=== PATIENT | male | born 2005 | race Caucasian/White ===

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

== ENCOUNTER 2025-04-10 10:23 | Outpatient (OUT) | payer OTHER, SELFPAY ==
--- OUTSIDE RECORDS SUMMARY | 2025-04-10 10:28 | XMS_ITS | Clinical Summary ---
Author Organization [facility] Address [address], [address] [place] [address] Care Team Providers Care Food Chemist Name Role Phone Unavailable Primary Care Provider Unavailabl e Allergies No known active allergies Medications ARIPiprazole (ABILIFY) 30 MG tablet 5 04/22/2015 Active topiramate (TOPAMAX) 25 MG tablet 6 04/24/2015 Active Social History Tobacco Use Types Packs/Day Years Used Date Smoking Tobacco: Never Smokeless Tobacco: Never Comments:mom smokes outside the home. EY MA Alcohol Use Standard Drinks/Week Comments Not Asked 0 (1 standard drink = 0.6 oz pur e alcohol) Sex and Gender Information Value Date Recorded Sex Assigned at Not on file Legal Sex Male 10:02 PM EST Gender Identity Not on file Sexual Orientation Not on file Last Filed Vital Signs Vital Sign Reading Time Taken Comments Blood Pressure 105/66 05/16/2015 9:48 AM EDT Pulse 101 05/16/2015 9:48 AM EDT Temperature 37 C (98.6 F) 05/16/2015 9:48 AM EDT Respiratory Rate 20 05/16/2015 9:48 AM EDT Oxygen Saturation - - Inhaled Oxygen Concentration - - Weight 45.8 kg (101 lb) 05/16/2015 9:48 AM EDT Height 134.6 cm (4' 5 ) 05/16/2015 9:48 AM EDT Body Mass Index 25.28 05/16/2015 9:48 AM EDT Body Mass Index Percentile 97.80% 05/16/2015 9:4 8 AM EDT Growth Chart: CDC (Boys, 2-2 0 Years) Plan of Treatment Not on file Insurance
[2025-04-10 11:01] LABS: Hematocrit 39.5 % (36.0-54.0); Hemoglobin 14.3 g/dL (12.0-18.0); Immature Granulocytes Abs Auto 0.03 10^3/uL (0.00-0.03); Immature Granulocytes Pct Auto 0.3 % (0.0-0.5); Lymphocytes Absolute Auto 3.2 10^3/uL (1.2-3.8); Mean Corpuscular HGB Conc 36.2 g/dL (29.9-35.2); Mean Corpuscular Hemoglobin 31.6 pg (25.9-34.0); Mean Corpuscular Volume 87.4 fL (80.0-99.0); Platelet Count 254 10^3/uL (150-450); Red Blood Count 4.52 10^6/uL (4.20-6.10); White Blood Count 9.3 10^3/uL (4.0-11.0)
[2025-04-10 11:32] LABS: Alanine Aminotransferase 110 U/L (14-63); Albumin Globulin Ratio 0.9; Albumin Level 3.7 g/dL (3.4-5.0); Alkaline Phosphatase 54 U/L (46-116); Anion Gap 17.2; Aspartate Amino Transferase 37 U/L (15-37); Blood Urea Nitrogen 10.0 mg/dL (6.4-19.3); Calcium 8.2 mg/dL (8.5-10.1); Carbon Dioxide 23.8 mmol/L (21.0-32.0); Chloride 105 mmol/L (98-107); Cholesterol 135 mg/dL (104-227); Estimated GFR (African America >60 (>=60 mL/min/1.73m^2); Estimated GFR (Non-African Ame >60 (>=60 mL/min/1.73m^2); Free T3 2.83 pg/mL (2.91-4.70); Globulin 4.2 g/dL; Glucose 107 mg/dL (74-106); HDL Cholesterol 40 mg/dL (23-69); Potassium 4.0 mmol/L (3.5-5.1); Sodium 142 mmol/L (136-145); Thyroid Stimulating Hormone 2.120 uIU/mL (0.516-4.130); Total Protein 7.9 g/dL (6.4-8.2); Triglycerides 159 mg/dL (50-208); VLDL CHOLESTEROL 31.8 mg/dL
== END 2025-04-10 10:24 | disposition home or self-care (01) ==
PROVIDERS: PCP Family Medicine; Visit Provider Family Medicine
DX: R73.09 Other abnormal glucose (principal); R03.0 Elevated blood-pressure reading, without diagnosis of hypertension; R53.83 Other fatigue
CPT/HCPCS: 36415; 80053; 80061; 83036; 83525; 84436; 84443; 84481; 85025

== ENCOUNTER 2025-07-31 12:49 | Outpatient (OUT) | payer OTHER, SELFPAY ==
--- OUTSIDE RECORDS SUMMARY | 2024-04-21 04:00 | XMS_ITS ---
Author Organization The [facility] in [place] Address [address] [place] [address] Care Team Providers Care Can Line Examiner Name Role Phone Agustín White Primary Care Provider [phone] REASON FOR VISIT acne on chest Social History Sex Assigned At : Social History Observation Description Sex Assigned At Male Encounters Encounter Location Date Provider Diagnosis [facility] [address] [place] [address] 04/21/2024 Agustín White Plan Of Treatment No Information Progress Notes * Estefania BEALiDOB:2005 (19 yo M)Acc No.[id number]:04/21/2024 UNLOCKED PROGRESS NOTE Progress Note Patient: Jovana DOSS :?Jose A White (ADELINA), MDDOB:2005???Age: 18 Y???Sex:Male(T)Date:4Phone:[phone]:[address] [place] [address] Subjective: * Chief Complaints: * 1 . Acne on chest. * Medical History: Objective: * Vitals: Assessment: Plan: * Treatment: * * Electronic signature of Agustín White MD, [id number] on 07/31/2025 at 12:53 PM EST Sign off status: PendingVisit Status:?N/S N/C (No Show/No Charge) * Provider: Rekha White MD (TTC) Date: 0 04/21/2024 Generated for Printing/Faxing/eTransmitting on:?07/31/2025 12:53 PM EST
--- OUTSIDE RECORDS SUMMARY | 2024-06-29 09:20 | XMS_ITS ---
Author Organization The [facility] in [place] Address [address] [place] [address] Care Team Providers Care Adult Psychiatrist Name Role Phone Agustín White Primary Care Provider Wilma Baum Unavailable [phone] REASON FOR VISIT great toenails ingrown Social History Sex Assigned At : Social History Observation Description Sex Assigned At Male Encounters Encounter Location Date Provider Diagnosis [facility] ([facility]) [address] [place] [address] [place] [address] 06/29/2024 Wilma Baum Plan Of Treatment No Information Progress Notes * Radha BEALAshliB:2005 (19 yo M)Acc No.[id number]:06/29/2024 UNLOCKED PROGRESS NOTE Follow Up Patient: Radha DOSSomi :?REINA EvansCDOB:2005???Age:18 Y ???Sex:Male(T)Date:06/29/2024hone:[phone]:[address] [place] [address]Pcp:Agustín White Subjective: * Chief Complaints: * 1 . Great toenails ingrown. * Medical History: Objective: * Vitals: Assessment: Plan: * Treatment: * * Electronic signature of Wilma Baum PA-C on 07/31/2025 at 12:53 PM ESTSign off status: PendingVisit Status:?CANC (Cancelled) * Provider: Olimpia Baum PA-C Date: 1 Generated for Printing/Faxing/eTransmitting on:?07/31/2025 12:53 PM EST
--- OUTSIDE RECORDS SUMMARY | 2025-07-23 13:20 | XMS_ITS | Encounter Summary ---
Author Organization [facility] Address [address] [place] [address] Care Team Providers Care Sql Consultant Name Role Phone Jose A White MD Primary Care Provider [phone] Reason for Referral * Consultation (Routine) - AuthorizedSpecialtyDiagnoses / ProceduresReferred By ContactReferred To ContactPlastic Surgery Diagnoses Gender dysphoria in adult Procedures [place] OFFICE/OUTPATIENT [facility] MDM 60 MINUTES Emeka Lim DO [address] [facility] [address] [place] [address] Phone: tel: fax: Ignacio Silva MD [address] [place] [address] Phone: tel: fax: Referral IDStatusReasonStart DateExpiration DateVisits RequestedVisits [id number] Specialty Services Required / * Consultation (Routine) - ClosedSpecialtyDiagnoses / ProceduresReferred By ContactReferred To ContactBehavioral Health Diagnoses Gender dysphoria in adult Procedures [place] OFFICE/OUTPATIENT [facility] MDM 60 MINUTES Emeka Lim DO [address] [facility] [address] [place] [address] Phone: tel: fax: Omayra Fox, [facility] [address] [place] [address] Phone: tel: fax: Referral IDStatReherbertStsid DateExpiration DateVisits RequestedVisits [id number] Specialty Services Required / Reason for Visit * ReasonCommentsHRT Encounter Details DateTypeDepartmentCare Team (Latest Contact Info)Bhtsfkivzzh77/03/2025 1:20 PM ESTOffice Visit [facility] [address] [place] [address] Emeka Lim DO [address] [place] [address] Gender dysphoria in adult (Primary Dx); Elevated glucose; Thyroid disease Social History Tobacco UseTypesPacks/DayYears UsedDateSmoking Tobacco: NeverSmokeless Tobacco: Never Tobacco Cessation:Counseling Given: Not Answered Alcohol UseStandard Drinks/WeekCommentsNever0 (1 standard drink = 0.6 oz pure alcohol)PHQ-2AnswerDate RecordedPatient Health Questionnaire-2 Prgxa79509/22/2024 Humiliation, Afraid, Rape, and Kick questionnaireAnswerDate RecordedWithin the last year, have you been afraid of your partner or ex-partner?No07/23/2025Within the last year, have you been humiliated or emotionally abused in other ways by your partner or ex-partner?No07/23/2025Within the last year, have you been kicked, hit, slapped, or otherwise physically hurt by your partner or ex-partner?No07/23/2025Within the last year, have you been raped or forced to have any kind of sexual activity by your partner or ex-partner?No07/23/2025 Social Connection and Isolation PanelAnswerDate RecordedIn a typical week, how many times do you talk on the phone with family, friends, or neighbors?More than three times a week07/23/2025How often do you get together with friends or relatives?Twice a week07/23/2025How often do you attend jainism or mandaeism services?Never07/23/2025Do you belong to any clubs or organizations such as jainism groups, unions, fraternal or athletic groups, or school groups?No 07/23/2025How often do you attend meetings of the clubs or organizations you belong to?Never07/23/2025Marital StatusNot on file07/23/2025UDIT-CAnswerDate RecordedQ1: How often do you have a drink containing alcohol?Never07/23/2025Q2: How many drinks containing alcohol do you have on a typical day when you are drinking?Patient does not drink07/23/2025Q3: How often do you have six or more drinks on one occasion?Never07/23/2025Overall Financial Resource Strain (CARDIA) AnswerDate RecordedHow hard is it for you to pay for the very basics like food, housing, medical care, and heating?Not very hard07/23/2025[facility] [place] [facility] - Occupational Stress QuestionnaireAnswerDate RecordedDo you feel stress - tense, restless, nervous, or anxious, or unable to sleep at night because yourmind is troubled all the time - these days?Rather much07/23/2025 Exercise Vital SignAnswerDate RecordedOn average, how many days per week do you engage in moderate to strenuous exercise (like a brisk walk)?1 day07/23/2025On average, how many minutes do you engage in exercise at this level?10 min 07/23/2025Hunger Vital SignAnswerDate RecordedWithin the past 12 months, you worried that your food would run out before you got the money to buymore. Sometimes true07/23/2025Within the past 12 months, the food you bought just didn't last and you didn't have money to get more.Never true07/23/2025PRAPARE - TransportationAnswerDate RecordedIn the past 12 months, has lack of transportation kept you from medical appointments or from getting medications?No 07/23/2025In the past 12 months, has lack of transportation kept you from meetings, work, or from getting things needed for daily living?No07/23/2025 Housing Stability Vital SignAnswerDate RecordedIn the last 12 months, was there a time when you were not able to pay the mortgage or rent on time?No07/23/2025 Number of Times Moved in the Last YearNot on file07/23/2025t any time in the past 12 months, were you homeless or living in a retirement (including now)?No [id number] Health LiteracyAnswerDate RecordedHow often do you need to have someone help you when you read instructions, pamphlets, or other written material from your doctor or pharmacy?Never07/23/2025Sex and Gender Information ValueDate RecordedSex Assigned at KqxdaErih05/12/2025 2:23 PM EDTLegal SexFemale 06/01/2025 2:23 PM EDTGender IdentityNot on fileSexual OrientationNot on file documented as of this encounter Last Filed Vital Signs Vital SignReadingTime TakenCommentsBlood Whjleqgm375/7207/23/2025 1:26 PM EST Cxdrj468307/23/2025 1:26 PM TAYMmdybrdbyjn20.8 ??C (98.2 ??F)07/23/2025 1:26 PM ESTRespiratory Shdr550709/22/2024 1:26 PM ESTOxygen Ejzplmukzg24%07/23/2025 1:26 PM ESTInhaled Oxygen Concentration--Ojzqpc524 kg (322 lb)07/23/2025 1:26 PM EST Dhhjfh620.2 cm (5' 7 )07/23/2025 1:26 PM ESTBody Mass Index50.43109/22/2024 1:26 PM ESTdocumented in this encounter Functional Status * AUDIT-C ScoreAnswerDate of PentopcmztKmieyg733/03/2025 1:26 PM Juli Solis MA * QuestionAnswerDate of AssessmentAuthorQ1: How often do you have a drink containing alcohol?Never07/23/2025 1:26 PM Juli Solis MAQ2: How many drinks containing alcohol do you have on a typical day when you are drinking? Patient does not drink07/23/2025 1:26 PM Juli Solis MAQ3: How often do you have six or more drinks on one occasion?Never07/23/2025 1:26 PM Juli Solis MA * Over the past 2 weeks, how often have you been bothered by any of the following problems?QuestionAnswerDate of AssessmentAuthorLittle interest or pleasure in doing thingsNot at all07/23/2025 1:26 PM Juli Solis MA Feeling down, depressed, or hopelessNot at all07/23/2025 1:26 PM Juli Solis MAPatient Health Questionnaire-2 Mkxrf36309/22/2024 1:26 PM Juli Solis MA documented as of this encounter Progress Notes * Emeka Lim, DO - 07/23/2025 1:20 PM EST Images from the original note were not included. FAMILY MEDICINE NOTE Chief Complaint: HRT HPI: Pt is a 19 y.o. female presents to the office today to establish care. Patient's previous PCP: Dr. White -[facility] any [facility] due to insurance. Patient's current other providers: N/A. Most recent labs: around 1 month(s) ago from [facility]. Pt wanted to discuss the following today: HRT. Gender Affirming Care How have you been feeling overall since your last visit: New to our office. Yes No Question Comments [] [x] Side Effects [] [x] Changes in mood [] [x] Changes in appetite [x] [] Missed doses [x] [] Positive changes in body/appearance [] [x] Any questions today Gender Identity: female Social History Substance and Sexual Activity Sexual Activity Never Social History: Tobacco Use: Tobacco Use: Low Risk (07/23/2025) Patient History Smoking Tobacco Use: Never Smokeless Tobacco Use: Never Passive Exposure: Not on file Family History[1] Pt denies any other acute complaints or concerns at this time. SUBJECTIVE: Past Medical History SURGICAL/SOCIAL/FAMILY HX ALLERGIES: Medical History[2] Surgical History[3] Social History[4] Family History[5] Allergies[6] OBJECTIVE: 07/23/2025 1:26 PM 06/14/2025 1:06 PM 06/01/2025 2:44 PM Vitals BMI 50.43 kg/m2 43.53 kg/m2 43.53 kg/m2 BSA (m2) 2.63 m2 2.17 m2 2.17 m2 Systolic 128 Diastolic 72 Heart Rate 84 SpO2 98 % Temp 98.2 ??F Resp 20 16 16 Height (in) 5' 7 5' 2 5' 2 Weight (lb) 322 238 238 Visit Report Report Report Report Physical Exam Constitutional: Appearance: Normal appearance. Cardiovascular: Rate and Rhythm: Normal rate and regular rhythm. Heart sounds: No murmur heard. No friction rub. No gallop. Pulmonary: Breath sounds: Normal breath sounds. No wheezing, rhonchi or rales. Abdominal: General: Abdomen is flat. Bowel sounds are normal. There is no distension. Palpations: Abdomen is soft. There is no mass. Tenderness: There is no abdominal tenderness. There is no guarding. Musculoskeletal: General: Normal range of motion. Skin: General: Skin is warm. Neurological: General: No focal deficit present. Mental Status: She is alert. Mental status is at baseline. Psychiatric: Mood and Affect: Mood and affect normal. Behavior: Behavior normal. ASSESSMENT AND PLAN: Jovana was seen today for hrt. Diagnoses and all orders for this visit: Gender dysphoria in adult (Primary) - estradiol (Vivelle-DOT) 0.1 MG/24HR; Place 1 patch on the skin 2 (two) times a week - spironolactone (Aldactone) 100 MG tablet; Take 1 tablet (100 mg) by mouth in the morning and 1 tablet (100 mg) before bedtime. - Estradiol; Future - Basic metabolic panel; Future - Testosterone, free, total; Future - Estradiol - Basic metabolic panel - Testosterone, free, total Elevated glucose Thyroid disease Gender affirming hormone therapy management: - Estrogen and spironolactone therapy ongoing since January 2024, with no reported side effects and satisfactory progress. - Refills for estrogen patch and spironolactone sent to [facility] in [place]. Continue current dosing schedule. Maintain three-month follow-up schedule. Order labs to be completed prior to next visit; patient may choose preferred lab location. Review lab results at next visit. Gender affirming surgery planning: - Eligible for gender affirming surgery referral now that it has been over one year of hormone therapy. Discussed options including top surgery, orchiectomy, vaginoplasty, and facial feminization surgery. Patient expressed interest in top surgery. - Referral for surgical consult initiated. [facility] [place] discussed as preferred center. Patient informed of insurance coverage process and typical surgical pathway. Mental health support and therapy referral: - Therapy letter required for top surgery. Patient interested in establishing care with a therapistbut unsure where to start. - Referral for therapy initiated, with options including [facility] and local providers. Therapist to provide required letter for surgical clearance. Thyroid disease/elevated glucose levels: - Intermittent levothyroxine use reported, previously taken for suspected thyroid-related hypertension. No ongoing therapy or current concerns. Not currently taking anything for elevated glucose although metformin was listed in the chart as previous med - Follow with PCP for care of these chronic coniditons Patient's Medications New Prescriptions No medications on file Previous Medications BLOOD GLUCOSE MONITORING SUPPL (TRUE METRIX METER) W/DEVICE KIT USE DAILY TO MONITOR BLOOD GLUCOSE LEVEL [employer] LANCETS MICRO THIN 33G MISC USE 1 LANCET TO TEST DAILY ESTRADIOL (ESTRACE) 2 MG TABLET Take 2 mg by mouth Daily LEVOTHYROXINE (SYNTHROID, LEVOXYL) 25 MCG TABLET Take 25 mcg by mouth in the morning. Take before meals. MELATONIN 3 MG CAPSULE Take by mouth TRUE METRIX BLOOD GLUCOSE TEST TEST STRIP 1 each by Other route if needed Modified Medications Modified Medication Previous Medication ESTRADIOL (VIVELLE-DOT) 0.1 MG/24HR estradiol (Vivelle-DOT) 0.1 MG/24HR Place 1 patch on the skin 2 (two) times a week Place 1 patch on the skin 2 (two) times a week SPIRONOLACTONE (ALDACTONE) 100 MG TABLET spironolactone (Aldactone) 100 MG tablet Take 1 tablet (100 mg) by mouth in the morning and 1 tablet (100 mg) before bedtime. Take 100 mg bymouth in the morning and 100 mg before bedtime. Discontinued Medications METFORMIN (GLUCOPHAGE) 500 MG TABLET Take 500 mg by mouth in the morning. Take with meals. EUUFGABD-[id number]-WYKCIUGLDYXOQK (CORTISPORIN) 3.5-91272-3 OTIC SUSPENSION INSTILL 4 DROPS INTO AFFECTED EAR THREE TIMES A DAY Follow Up: Follow up in about 3 months (around 10/23/2025) for gaht f/u. This note was prepared in part with the assistance of dictation and AI technologies; minor errors or omissions may be present. Emeka Lim DO [1] No family history on file. [2] Past Medical History: Diagnosis Date ADHD (attention deficit hyperactivity disorder) Pre-diabetes [3] Past Surgical History: Procedure Laterality Date NO PAST SURGERIES [4] Social History Tobacco Use Smoking status: Never Smokeless tobacco: Never Substance Use Topics Alcohol use: Never Drug use: Never [5] No family history on file. [6] No Known Allergies documented in this encounter Plan of Treatment DateTypeDepartmentCare Team (Latest Contact Info)Aozlkwvidqr39/16/2025 2:00 PM ESTClinical Support [facility] [address] [place] [address] Claudy Santana LPC 10/23/2025 1:20 PM ESTOffice Visit [facility] [address] [place] [address] Emeka Lim DO [address] [place] [address] NameTypePriorityAssociated DiagnosesOrder ScheduleEstradiolLabRoutine Gender dysphoria in adult Expected: 07/23/2025 (Approximate), Expires: 07/23/2026asic metabolic panelLab Routine Gender dysphoria in adult Expected: 07/23/2025 (Approximate), Expires: 07/23/2026Testosterone, free, total LabRoutine Gender dysphoria in adult Expected: 07/23/2025 (Approximate), Expires: 07/23/2026NameTypePriority Associated DiagnosesOrder ScheduleAmbulatory referral to Behavioral Health Outpatient ReferralRoutine Gender dysphoria in adult Expected: 07/23/2025 (Approximate), Expires: 01/20/2026mbulatory referral to Plastic SurgeryOutpatient ReferralRoutine Gender dysphoria in adult Expected: 07/23/2025 (Approximate), Expires: 01/20/2026documented as of this encounter Visit Diagnoses Diagnosis Gender dysphoria in adult- Primary Elevated glucose Other abnormal glucose Thyroid disease Unspecified disorder of thyroid documented in this encounter Care Teams Team MemberRelationshipSpecialtyStart DateEnd Date Jose A White MD [address] [place] [id number] PCP - GeneralFamily Medicine06/01/25documented as of this encounter
--- OUTSIDE RECORDS SUMMARY | 2025-07-31 12:52 | XMS_ITS | CCD ---
Author Organization [facility] CliniSywv Care Team Providers Care Hairspring Inspector Name Role Phone NEHAL ., DR PHAM Admitting Unavailable HOY ., DR PHAM Attending Unavailable HOY ., DR PHAM Primary Care Unavailable HOY ., DR PHAM Consulting Unavailable HOY ., DR PHAM Admitting Unavailable HOY ., DR PHAM Attending Unavailable HOY ., DR PHAM Primary Care Unavailable HOY ., DR PHAM Consulting Unavailable KALEN COLON Consulting Unavailable Problems Problem ClassificationProblemDateDocumented DateEpisodic/ChronicOther connective tissue disease (4 sources)Pain in leg, unspecified; Translations: [PAIN IN LEG UNSPECIFIED] Onset: 86-74-6900OimwlckpKctfe non-traumatic joint disorders (1 source)Pain in unspecified joint; Translations: [PAIN IN UNSPECIFIED JOINT] Onset: 21-71-9826EiuswgdgUyqzh non-traumatic joint disorders (1 source)Pain in right knee; Translations: [PAIN IN RIGHT KNEE]Onset: 09-81-8747Bpfdxqfc Results Test NameValueInterpretationReference RangeFacilityANA by IFAon 12-10-2022 Antinuclear Antibodies, IFANegativeNormMetroHealth Cleveland Heights Medical CenterComment on above: Result Comment: Negative <1:80 Borderline 1:80 Positive >1:80 ICAP nomenclature: AC-0 For more information about Hep-2 cell patterns use ANApatterns.org, the official website for the International Consensus on Antinuclear Antibody (CLAUS) Patterns (ICAP).Performed By: #### ANAIFA #### [facility] [address] [place], [place] [address] Dr. Brandy WhatleyANTISTREPTOLYSIN O AB (ASO)on 68-98-5602Oevraeksoqejltju O Ab 255.7 IU/mLCritically high0.0-200.0The [facility]red HealthcareComment on above: Performed By: #### ANAIFA #### [facility] [address] [place] [address] Dr. Brandy WhatleyRHEUMATOID FACTORon 41-11-8040RU Latex Turbid.12.2 IU/mLNormal <14.0The [facility]red HealthcareComment on above:Performed By: #### RF #### [facility] [address] [place] [address] Dr. Brandy WhatleyCRPon 26-78-5826WSB7.2 mg/dLNormal<=1.0The [facility] Comment on above:Performed By: #### ANAIFA #### [facility] [address] [place] [address] Dr. Brandy WhatleyURIC ACID SERUMon 28-73-3625Gbaet [Mass/Vol]8.9 mg/dLCritically high3.5-7.2The [facility]red HealthcareComment on above:Performed By: #### ANAIFA #### [facility] [address] [place] [address] Dr. Brandy Stout by IFAon 00-57-2677Rikjryamowu Antibodies, IFANegativeNormal The Kindred HealthcareComment on above:Result Comment: Negative <1:80 Borderline 1:80 Positive >1:80 ICAP nomenclature: AC-0 For more information about Hep-2 cell patterns use ANApatterns.org, the official website for the International Consensus on Antinuclear Antibody (CLAUS) Patterns (ICAP).Performed By: #### ANAIFA #### [facility] [address] [place] [address] Dr. Brandy WhatleyANTISTREPTOLYSIN O AB (ASO)on 40-26-6579Jonodtjfasogoqmz O Ab 264.0 IU/mLCritically high0.0-200.0The [facility]red HealthcareComment on above: Performed By: #### ANAIFA #### [facility] [address] [place] [address] Dr. Brandy WhatleyINSULINon 49-08-0445Augapbm26.4 uIU/mLCritically high2.6-24.9The [facility]red HealthcareComment on above:Performed By: #### ANAIFA #### [facility] [address] [place] [address] Dr. Brandy ChaudharyEUMATOID FACTORon 55-85-7308FQ Latex Turbid.10.9 IU/mLNormal <14.0The [facility]red HealthcareComment on above:Performed By: #### ANAIFA #### [facility] [address] [place] [address] Dr. Brandy Vasquez AUTO DIFFon 62-50-9712NPOJ #0.1 103/ulNormal0.0-0.1The [facility]red HealthcareComment on above:Performed By: #### CBC #### [facility] [address] [place] [address] Dr. Brandy WhatleyBasophils/100 WBC (Bld)1.4 %Normal0.2-2.0The [facility] Comment on above:Performed By: #### CBC #### [facility] [address] [place] [address] Dr. Brandy Aponte #0.3 103/ulNormal0.0-0.7The [facility]red HealthcareComment on above: Performed By: #### CBC #### [facility] [address] [place] [address] Dr. Brandy Simpsonosinophils/100 WBC (Bld)3.1 %Normal0.9-7.0The [facility] Comment on above:Performed By: #### CBC #### [facility] [address] [place] [address] Dr. Brandy Simpsonrythrocyte distribution width (RBC) [Ratio]12.0 %Nuweze87.0-15.0 The [facility]red HealthcareComment on above:Performed By: #### CBC #### [facility] [address] [place] [address] Dr. Brandy WhatleyHematocrit (Bld) [Volume fraction]44.7 %Wzjtuz08.0-54.0The [facility]red HealthcareComment on above:Performed By: #### CBC #### [facility] [address] [place] [address] Dr. Brandy WhatleyHemoglobin (Bld) [Mass/Vol]16.8 g/wTHokqhe16.0-18.0The [facility] on above:Performed By: #### CBC #### [facility] [address] [place] [address] Dr. Brandy Villarreal #0.02 10e3/ulNormal0.00-0.03The [facility]red HealthcareComment on above:Performed By: #### CBC #### [facility] [address] [place] [address] Dr. Brandy Villarreal %0.2 %Normal0.0-0.5The [facility]Com[facility] on above: Performed By: #### CBC #### [facility] [address] [place] [address] Dr. Brandy Mcghee #3.4 103/ulNormal1.2-3.8The [facility]red HealthcareComment on above:Performed By: #### CBC #### [facility] [address] [place] [address] Dr. Brandy Claroshocytes/100 WBC (Bld)40.7 %Tczvsz56.5-60.0The [facility] on above:Performed By: #### CBC #### [facility] [address] [place] [address] Dr. Brandy FerraraUAL DIFF REQNONormalThe Kindred HealthcareComment on above: Performed By: #### CBC #### [facility] [address] [place] [address] Dr. Brandy Benson (RBC) [Entitic mass]30.8 qyEzxomq19.9-34.0The [facility]red HealthcareComment on above:Performed By: #### CBC #### [facility] [address] [place] [address] Dr. Brandy Benson (RBC) [Mass/Vol]37.6 g/dLCritically high29.9-35.2The [facility]red HealthcareComment on above:Performed By: #### CBC #### [facility] [address] [place] [address] Dr. Brandy BensonV (RBC) [Entitic vol]82.0 nSYyjnfx05.3-90.1The [facility] on above:Performed By: #### CBC #### [facility] [address] [place] [address] Dr. Brandy Johnson #0.5 103/ulNormal0.3-0.8The Kindred HealthcareComment on above:Performed By: #### CBC #### [facility] [address] [place] [address] Dr. Brandy Pateocytes/100 WBC (Bld)6.0 %Normal1.7-12.0[facility] Comment on above:Performed By: #### CBC #### [facility] [address] [place] [address] Dr. Brandy WellsUT #4.0 103/ulNormal1.4-6.5The Kindred HealthcareComment on above:Performed By: #### CBC #### [facility] [address] [place] [address] Dr. Brandy Wellsutrophils/100 WBC (Bld)48.6 %Kciawe34.0-75.0The Kindred HealthcareComment on above:Performed By: #### CBC #### [facility] [address] [place] [address] Dr. Brandy Kincaidlet mean volume (Bld) [Entitic vol]8.8 fLCritically low 9.5-13.5The [facility]red HealthcareComment on above:Performed By: #### CBC #### [facility] [address] [place] [address] Dr. Brandy WhatleyPLT285 103/ujKsfglo553-254Lgy Kindred HealthcareComment on above: Performed By: #### CBC #### [facility] [address] [place] [address] Dr. Brandy WhatleyRBC5.45 106/ulCritically high3.30-5.40The [facility] Comment on above:Performed By: #### CBC #### [facility] [address] [place] [address] Dr. Brandy WhatleyWBC8.3 103/ulNormal4.0-11.0The [facility] on above: Performed By: #### CBC #### [facility] [address] [place] [address] Dr. Brandy WhatleyCRColton 82-95-3811KTW [Mass/Vol]mg/LNormal<=1.0The [facility] on above:Performed By: #### CMP, TSH, LIPID, CRP, URIC, T7 #### [facility] [address] [place] [address] Dr. Brandy WhatleyFRHIGINIO THYROXINE INDEX T7on 63-33-9573SFS9.71Cwlxlg5.30-4.50The [facility] on above:Performed By: #### CMP, TSH, LIPID, CRP, URIC, T7 #### [facility] [address] [place] [address] Dr. Brandy WhatleyT3U34.0 %Uwiyts28.0-40.0The [facility] on above: Performed By: #### CMP, TSH, LIPID, CRP, URIC, T7 #### [facility] [address] [place] [address] Dr. Brandy WhatleyT4 [Mass/Vol]4.70 ug/dLCritically low5.40-10.60[facility] on above:Performed By: #### CMP, TSH, LIPID, CRP, URIC, T7 #### [facility] [address] [place] [address] Dr. Brandy WhatleyGLYCOHEMOGLOBIN A1Con 88-49-5575RNT RECOMMENDATIONSEE BELOWNormal The [facility]Com[facility] on above:Result Comment: ADA RECOMMENDED LIMIT 4.0 - 6.0 ADA THERAPEUTIC TARGET < 7.0 ACTION SUGGESTED > 7.0Performed By: #### A1C #### [facility] [address] [place] [address] Dr. Brandy WhatleyGlucose [Mass/Vol]88 mg/dLNormalThe [facility]elito HospitalComment on above:Performed By: #### A1C #### [facility] [address] [address] [address] Brandy WhatleyHbA1c (Bld) [Mass fraction]4.7 %Normal4.5-6.2The [facility]red HealthcareComment on above:Performed By: #### A1C #### [facility] [address] [place] [address] Dr. Brandy Gomes 24-78-0020Gwio [Mass/Vol]122.0 ug/vFKuglhl28.0-175.0The [facility]red HealthcareComment on above:Performed By: #### ANAIFA #### [facility] [address] [place] [address] Dr. Brnady FlemingID PROFILEon 27-05-2210QRUZ-HDL RATIO [facility] on above:Result Comment: 3.3 - 4.4 LOW RISK 4.4 - 7.1 AVERAGE RISK 7.1 - 11.0 MODERATE RISK >11.0 HIGH RISKPerformed By: #### CMP, TSH, LIPID, CRP, URIC, T7 #### [facility] [address] [place] [address] Dr. Brandy WhatleyCholesterol [Mass/Vol]158 mg/vJDqxlbp986-012Voa [facility] Comment on above:Performed By: #### CMP, TSH, LIPID, CRP, URIC, T7 #### [facility] [address] [place] [address] Dr. Brandy WhatleyCholesterol in HDL [Mass/Vol]37 mg/tMRxilmr71-56Ehy [facility] HealthcareComment on above:Performed By: #### CMP, TSH, LIPID, CRP, URIC, T7 #### [facility] [address] [place] [address] Dr. Brandy Schusteresterol in LDL [Mass/Vol]72.4 mg/bQFyczji99.0-117.0The [facility] on above:Performed By: #### CMP, TSH, LIPID, CRP, URIC, T7 #### [facility] [address] [place] [address] Dr. Brandy WhatleyCholesterol.total/Cholesterol in HDL [Mass ratio]4.3 {ratio} NormalThe [facility] on above:Performed By: #### CMP, TSH, LIPID, CRP, URIC, T7 #### [facility] [address] [address] [address] Brandy Jung NORMAL> or = 60 mg/dl - LOW CARDIOVASCULAR RISK <40 mg/dl - HIGH CARDIOVASCULAR RISKParkview Health Montpelier HospitalComment on above:Performed By: #### CMP, TSH, LIPID, CRP, URIC, T7 #### [facility] [address] [place] [address] Dr. Brandy WhatleyLDL CALC NORMALSEE BELOWParkview Health Montpelier HospitalComment on above:Result Comment: <100 mg/dl OPTIMAL 100 - 129 mg/dl NEAR OR ABOVE OPTIMAL 130 - 159 mg/dl BORDERLINE HIGH 160 - 189 mg/dl HIGH >190 mg/dl VERY HIGH Performed By: #### CMP, TSH, LIPID, CRP, URIC, T7 #### [facility] [address] [place] [address] Dr. Brandy WhatleyTriglyceride [Mass/Vol]243 mg/dLCritically zqof50-041Gzj [facility] on above:Performed By: #### CMP, TSH, LIPID, CRP, URIC, T7 #### [facility] [address] [place] [address] Dr. Brandy WhatleyVLDL CALC48.6 mg/dLNoKing's Daughters Medical Center OhioCombeaumont hospital on above: Performed By: #### CMP, TSH, LIPID, CRP, URIC, T7 #### [facility] [address] [place] [address] Dr. Brandy WhatleyPROLizzie 14(COMP METB)on 94-94-3668Afvezjm [Mass/Vol]4.6 g/dLNormal 3.4-5.0The [facility] HealthcareCombeaumont hospital on above:Performed By: #### CMP, TSH, LIPID, CRP, URIC, T7 #### [facility] [address] [place] [address] Dr. Brandy WhatleyAlbumin/Globulin [Mass ratio]1.1 {ratio}NormalThe [facility]red HealthcareComment on above:Performed By: #### CMP, TSH, LIPID, CRP, URIC, T7 #### [facility] [address] [place] [address] Dr. Brandy Cantu [Catalytic activity/Vol]85 U/AOymmpu56-014Ash [facility] HealthcareComment on above:Performed By: #### CMP, TSH, LIPID, CRP, URIC, T7 #### [facility] [address] [place] [address] Dr. Brandy Armando [Catalytic activity/Vol]145 U/LCritically bzky65-45Epg [facility] HealthcareComment on above:Performed By: #### CMP, TSH, LIPID, CRP, URIC, T7 #### [facility] [address] [place] [address] Dr. Brandy WhatleyAnion gap [Moles/Vol]15.1 mmol/LNormalThe [facility] Comment on above:Performed By: #### CMP, TSH, LIPID, CRP, URIC, T7 #### [facility] [address] [place] [address] Dr. Brandy Munoz [Catalytic activity/Vol]44 U/LCritically mfmb91-59Zsy [facility] on above:Performed By: #### CMP, TSH, LIPID, CRP, URIC, T7 #### [facility] [address] [place] [address] Dr. Brandy WhatleyBilirubin [Mass/Vol]0.8 mg/dLNormal0.2-1.0The [facility] Comment on above:Performed By: #### CMP, TSH, LIPID, CRP, URIC, T7 #### [facility] [address] [place] [address] Dr. Brandy WhatleyCalcium [Mass/Vol]9.5 mg/dLNormal8.5-10.1The [facility] Comment on above:Performed By: #### CMP, TSH, LIPID, CRP, URIC, T7 #### [facility] [address] [place] [address] Dr. Brandy WhatleyChloride [Moles/Vol]102 mmol/MQqzmhp96-263Muf [facility] Comment on above:Performed By: #### CMP, TSH, LIPID, CRP, URIC, T7 #### [facility] [address] [address] [address] Brandy WhatleyCO2 [Moles/Vol]27.7 mmol/WCwvztf36.0-32.0The [facility] Comment on above:Performed By: #### CMP, TSH, LIPID, CRP, URIC, T7 #### [facility] [address] [place] [address] Dr. Brandy WhatleyCreatinine [Mass/Vol]0.78 mg/dLNormal0.70-1.30The [facility]red HealthcareComment on above:Performed By: #### CMP, TSH, LIPID, CRP, URIC, T7 #### [facility] [address] [place] [address] Dr. Brandy WhatleyGlobulin (S) [Mass/Vol]4.3 g/dLNormalThe [facility]red HealthcareComment on above:Performed By: #### CMP, TSH, LIPID, CRP, URIC, T7 #### [facility] [address] [place] [address] Dr. Brandy WhatleyGlucose [Mass/Vol]95 mg/jYNcvfik65-163RmxSt. [facility] Comment on above:Performed By: #### CMP, TSH, LIPID, CRP, URIC, T7 #### [facility] [address] [place] [address] Dr. Brandy WhatleyPotassium [Moles/Vol]3.8 mmol/LNormal3.5-5.1The [facility] Comment on above:Performed By: #### CMP, TSH, LIPID, CRP, URIC, T7 #### [facility] [address] [place] [address] Dr. Brandy WhatleyProtein [Mass/Vol]8.9 g/dLCritically high6.4-8.2The [facility]red HealthcareComment on above:Performed By: #### CMP, TSH, LIPID, CRP, URIC, T7 #### [facility] [address] [place] [address] Dr. Brandy WhatleySodium [Moles/Vol]141 mmol/OBfnzzv177-087Phx [facility] Comment on above:Performed By: #### CMP, TSH, LIPID, CRP, URIC, T7 #### [facility] [address] [address] [address] Brandy WhatleyUrea nitrogen [Mass/Vol]9.0 mg/dLNormal6.4-19.3The [facility] HealthcareComment on above:Performed By: #### CMP, TSH, LIPID, CRP, URIC, T7 #### [facility] [address] [address] [address] Brandy WhatleyUrea nitrogen/Creatinine [Mass ratio]11.5 mg/mgNoKing's Daughters Medical Center OhioComment on above:Performed By: #### CMP, TSH, LIPID, CRP, URIC, T7 #### [facility] [address] [address] [address] Brandy CornejoHoyusuf 63-89-7785JFC1.415 uIU/mLNormal0.516-4.130The [facility]red HealthcareComment on above:Performed By: #### CMP, TSH, LIPID, CRP, URIC, T7 #### [facility] [address] [address] [address] Brandy WhatleyURIC ACID SERUMon 15-15-4356Ytjbg [Mass/Vol]9.7 mg/dLCritically high3.5-7.2The [facility]red HealthcareComment on above:Performed By: #### CMP, TSH, LIPID, CRP, URIC, T7 #### [facility] [address] [address] [address] Brandy WhatleyXR KNEE RT 4V or >on 45-10-0306JA KNEE RT 4V or >TECHNIQUE: 4 views of the right knee. FINDINGS: Mineralization: Within normal limits. Bones: No acute fractures or dislocations. Joints: Normal joint spacing. Soft Tissues: Unremarkable. IMPRESSION: No acute osseous abnormality. Electronically authenticated by: KALEN COLON Date: 2022-10-19 08:18[facility] Encounters Encounter DateEncounter TypeCare ProviderFacilityStart: 12-07-2022 End: 09-14-1353lgfmmqhnguBA VERO CALVERT .Facility:H1Qdkpr: 37-10-5139Mqlkyktbt for routine child health examination without abnormal findingsDR VERO SERRANOY . [facility]: 10-19-2022 End: 48-31-4324lgsppjzhtsKO VERO HOY .Facility:N5Pihni: 10-19-2022 End: 75-37-4800Wlabunowd for routine child health examination without abnormal findingsDR VERO HOY .Facility: Payers DatePayer CategoryPayerPolicy [id number] Summary Purpose Family History No Family History Records Found Advance Directives No Advanced Directives Records Found Additional Source Comments (unrecognized sect ion and content) No Status Records Found INFORMATION SOURCE (unrecogn ized section and content) DATE CREATED AUTHOR 12/15/2022 [facility] FOR RECORDS PERTAINING TO PATIENTS WHO ARE OR HAVE BEEN ENROLLED IN A CHEMICAL DEPENDENCY/SUBSTANCEABUSE PROGRAM, SOME INFORMATION MAY BE OMITTED. This clinical summary was aggregated from multiple sources. Caution should be exercised in using it in the provision of clinical care. This summary normalizes information from multiple sources, and as a consequence, information in this document may materially change the coding, format and clinical context of patient data. In addition, data may be omitted in some cases. CLINICAL DECISIONS SHOULD BE BASED ON THE PRIMARY CLINICAL RECORDS. [employer] provides no warranty or guarantee of the accuracy or completeness of information in this document.
--- OUTSIDE RECORDS SUMMARY | 2025-07-31 12:53 | XMS_ITS | Clinical Summary ---
Author Organization [facility] Address [address] [id number] Care Team Providers Care Air Plant Engineer Name Role Phone Unavailable Primary Care Provider Unavailabl e Source Comments The following information is NOT included in Care Everywhere downloads:Psychiatric notes, ECG results, Cardiac Rehab notes, Pulmonary Function notes, data from SmartForms (includes but not limited toPregnancy data,audiograms, eye exams, pre-surgical evaluation notes, well-child exam data).[facility] Encounters DateTypeDepartmentCare GavsTykhlanpuft72/10/2025Transcribe Orders [facility] Physician Referral Service [address] [phone] Emeka Lim DO from Last 3 Months Social History Tobacco UseTypesPacks/DayYears UsedDateSmoking Tobacco: Never Assessed CommentsUnknownSex and Gender InformationValueDate RecordedSex Assigned at Not on fileLegal TyqNuarza25/10/2025 3:41 PM ESTGender IdentityNot on fileSexual OrientationNot on file Plan of Treatment Health MaintenanceDue DateLast DoneCommentsHIV Test2020HPV Vaccine (1 - 3- dose series)2020Meningococcal B (Bexsero,OMV) Vaccine (Optional,16-23 years)2021Hepatitis C Geskipcp96/22/2023STI Screening (Age 18-24) 2023Tdap Ulqtnay1409/10/2023Hepatitis A (HAV) Vaccine (optional start 19+ years)2024Hepatitis B (HBV) Vaccine (1 of 3 - 19+ 3-dose series)2024 Tetanus (Td or Tdap) Inofzhr2109/10/2024OVID-19 Vaccine ( - 2024-26 season) 2025Influenza Vaccine (#1)2025Eliceo (RZV) Vaccine (1 of 2) 2055Pneumococcal Vaccine(s)Aged OutNo longer eligible based on patient's age to complete this topic
--- OUTSIDE RECORDS SUMMARY | 2025-07-31 12:53 | XMS_ITS | Encounter Summary ---
Author Organization [facility] Address [address] [phone] Care Team Providers Care Jewel Inspector Name Role Phone Unavailable Primary Care Provider Unavailabl e Reason for Referral * Service Level Authorization (Routine) - AuthorizedSpecialtyDiagnoses / ProceduresReferred By ContactReferred To ContactPlastic Surgery Diagnoses Gender dysphoria in adult Emeka Lim DO [address] [address] Phone: tel: fax: Ignacio Silva MD [address] [place] [phone] Phone: tel: fax: Referral IDStatusReasonStart DateExpiration DateVisits RequestedVisits [id number]/10/202511/10/202633 Scheduling Instructions Please call the Plastic Surgery Office at to schedule an appointment if one was not made for you today. Encounter Details DateTypeDepartmentCare Team (Latest Contact Info)Sgyrrbwiwtp14/10/2025Transcribe Orders [facility] Physician Referral Service [address] [place] [address] Emeka Lim DO [address] [place], [place] [id number] Social History Tobacco UseTypesPacks/DayYears UsedDateSmoking Tobacco: Never Assessed CommentsUnknownSex and Gender InformationValueDate RecordedSex Assigned at Not on fileLegal OlzTercwo55/10/2025 3:41 PM ESTGender IdentityNot on fileSexual OrientationNot on filedocumented as of this encounter Plan of Treatment NameTypePriorityAssociated DiagnosesOrder SchedulePLASTIC SURGERY SERVICE REQUESTReferralRoutine Gender dysphoria in adult Ordered: 07/30/2025documented as of this encounter Visit Diagnoses Diagnosis Gender dysphoria in adult- Primary documented in this encounter
--- OUTSIDE RECORDS SUMMARY | 2025-07-31 12:53 | XMS_ITS | Clinical Summary ---
Author Organization [facility] Address [address] [place] [address] Care Team Providers Care Management Advisor Name Role Phone Jose A White MD Primary Care Provider [phone] Allergies No known active allergies Medications MedicationSigDispense QuantityRefillsLast FilledStart DateEnd DateStatus Blood Glucose Monitoring Suppl (True Metrix Meter) w/Device kit USE DAILY TO MONITOR BLOOD GLUCOSE LEVEL04/20/2025tive estradiol (Estrace) 2 MG tablet Take 2 mg by mouth Daily5Active True Metrix Blood Glucose Test test strip 1 each by Other route if onfhqt8004/20/2025tive [facility] Lancets Micro Thin 33G [facility] USE 1 LANCET TO TEST DAILY04/20/2025tive levothyroxine (Synthroid, Levoxyl) 25 MCG tablet Take 25 mcg by mouth in the morning. Take before meals.04/10/2025tive Melatonin 3 MG capsule Take by mouthActive estradiol (Vivelle-DOT) 0.1 MG/24HR Indications:Gender dysphoria in adultPlace 1 patch on the skin 2 (two) times a week 30 patch /ctive spironolactone (Aldactone) 100 MG tablet Indications:Gender dysphoria in adultTake 1 tablet (100 mg) by mouth in the morning and 1 tablet (100 mg) before bedtime. 60 tablet ctive estradiol (Vivelle-DOT) 0.1 MG/24HR Place 1 patch on the skin 2 (two) times a weekDiscontinued (Reorder) metFORMIN (Glucophage) 500 MG tablet Take 500 mg by mouth in the morning. Take with meals. Discontinued(Therapy completed) diksrliu-pksckkwth-bvahdteckyqmhd (Cortisporin) 3.5-61354-8 otic suspension INSTILL 4 DROPS INTO AFFECTED EAR THREE TIMES A DAY Discontinued(Therapy completed) spironolactone (Aldactone) 100 MG tablet Take 100 mg by mouth in the morning and 100 mg before bedtime.07/03/2025 07/23/2025Discontinued(Reorder) Active Problems No known active problems Encounters DateTypeDepartmentCare XtlgGxkbfhguods06/03/2025 1:20 PM ESTOffice Visit [facility] [address] , [facility] [address] [place] [address] Emeka Lim DO Gender dysphoria in adult (Primary Dx); Elevated glucose; Thyroid lnadhfk3607/23/2025amboo flowsheet [facility]ly [facility], [facility] [address] , [facility] [address] [place] [address] Emeka Lim DO 07/23/20259836Lfosve51/25/2025 1:00 PM EDTOffice Visit [facility] [address] [facility] [address] [place] [phone] Devyn Giordano DPM Abscess, toe, left (Primary Dx); Onychocryptosis; Toe pain, left06/14/2025amboo flowsheet [facility] [address] [facility] [address] [place] [address] Devyn Giordano DPM 06/14/20258973Lcofzj27/12/2025 2:30 PM EDTOffice Visit [facility] [address] [place] [phone] Devyn Giordano DPM Onychocryptosis (Primary Dx); Toe pain, left; Abscess, toe, left06/01/2025amboo flowsheet [facility] [address] [place] [address] Devyn Giordano DPM from Last 3 Months Social History Tobacco UseTypesPacks/DayYears UsedDateSmoking Tobacco: NeverSmokeless Tobacco: Never Tobacco Cessation:Counseling Given: Not Answered Alcohol UseStandard Drinks/WeekCommentsNever0 (1 standard drink = 0.6 oz pure alcohol)PHQ-2AnswerDate RecordedPatient Health Questionnaire-2 Ryxww10109/22/2024 Humiliation, Afraid, Rape, and Kick questionnaireAnswerDate RecordedWithin [...] relatives?Twice a week07/23/2025How often do you attend uatsdin or muslim services?Never07/23/2025Do you belong to any clubs or organizations such as uatsdin groups, unions, fraternal or athletic groups, or [...] food, housing, medical care, and heating?Not very hard07/23/2025[facility] - Occupational Stress QuestionnaireAnswerDate [...] were you homeless or living in a chcf (including now)?No 07/23/2025B1300 Health LiteracyAnswerDate RecordedHow often do you need to have someone help you when you read instructions, pamphlets, or other written material from your doctor or pharmacy?Never07/23/2025Sex and Gender Information ValueDate RecordedSex Assigned at LhuolUeym60/12/2025 2:23 PM EDTLegal SexFemale 06/01/2025 2:23 PM EDTGender IdentityNot on fileSexual OrientationNot on file Last Filed Vital Signs Vital SignReadingTime TakenCommentsBlood Wgtzkirz354/7211 1:26 PM EST Ipqvz844407/23/2025 1:26 PM EGOKlvueqdjsry57.8 ??C (98.2 ??F)07/23/2025 1:26 PM ESTRespiratory Cthh990409/22/2024 1:26 PM ESTOxygen Ubchmymfmv38%07/23/2025 1:26 PM ESTInhaled Oxygen Concentration--Wpioto558 kg (322 lb)07/23/2025 1:26 PM EST Tnvkmm295.2 cm (5' 7 )07/23/2025 1:26 PM ESTBody Mass Index50.43109/22/2024 1:26 PM EST Plan of Treatment DateTypeDepartmentCare Team (Latest Contact Info)Tngszwrcrwz85/16/2025 2:00 PM ESTClinical Support [facility] [address] [place] [address] Claudy Santana LPC 10/23/2025 1:20 PM ESTOffice Visit [facility] [address], [place] [address] [place] [address] Emeka Lim DO [address] [place] [address] [place] [address] Health MaintenanceDue DateLast DoneCommentsCOVID-19 Vaccine ( season) /07/2021, 02/07/2021Influenza Vaccine (#1)/, 12/20/2018, 08/19/2007, Additional history existsPneumococcal Vaccine: Pediatrics (0 to 5 Years) and At-Risk Patients (6 to 64 Years)Aged OutNo longer eligible based on patient's age to complete this topic Insurance Care Teams Team MemberRelationshipSpecialtyStart Date Jose A White MD [address] [place] [phone] PCP - GeneralFamily Medicine06/01/25
--- OUTSIDE RECORDS SUMMARY | 2025-07-31 12:54 | XMS_ITS | Encounter Summary ---
Author Organization [facility] Address [address] [place] [address] Care Team Providers Care Tax Examiner Name Role Phone Jose A White MD Primary Care Provider [phone] Encounter Details DateTypeDepartmentCare Team (Latest Contact Info)Wofceruyfax99/03/2025Travel Social History Tobacco UseTypesPacks/DayYears UsedDateSmoking Tobacco: NeverSmokeless Tobacco: NeverAlcohol UseStandard Drinks/WeekCommentsNever0 (1 standard drink = 0.6 oz pure alcohol)PHQ-2AnswerDate RecordedPatient Health Questionnaire-2 Score0 07/23/2025Humiliation, Afraid, Rape, and Kick questionnaireAnswerDate Recorded Within the last year, have you been afraid of your partner or ex-partner?No 07/23/2025Within the last year, have you been humiliated [...] relatives?Twice a week07/23/2025How often do you attend sikh or christianity services?Never07/23/2025Do you belong to any clubs or organizations such as sikh groups, unions, fraternal or athletic groups, or [...] food, housing, medical care, and heating?Not very hard07/23/2025[facility] [place] of Occupational Health - Occupational Stress QuestionnaireAnswerDate [...] were you homeless or living in a fci (including now)?No 5B1300 Health LiteracyAnswerDate RecordedHow often do you need to have someone help you when you read instructions, pamphlets, or other written material from your doctor or pharmacy?Never07/23/2025Sex and Gender Information ValueDate RecordedSex Assigned at SxjitTusb58/12/2025 2:23 PM EDTLegal SexFemale 06/01/2025 2:23 PM EDTGender IdentityNot on fileSexual OrientationNot on file documented as of this encounter Functional Status * AUDIT-C ScoreAnswerDate of KxcntvaxgxTcssnt373/03/2025 1:26 PM Juli Solis MA * QuestionAnswerDate [...] 1:26 PM Juli Solis MAPatient Health Questionnaire-2 Awzic66509/22/2024 1:26 PM Juli Solis MA documented as of this encounter Plan of Treatment DateTypeDepartmentCare Team (Latest Contact Info)Mfliuynsquh57/16/2025 2:00 PM ESTClinical Support [facility] [address] [place] [address] Max Claudy, REGIONAL ACCOUNT EXECUTIVE 10/23/2025 1:20 PM ESTOffice Visit [facility] [address], [place] [address] [place] [phone] Emeka Lim, [address] [place] [address] [place] [address] documented as of this encounter Visit Diagnoses Not on filedocumented in this encounter Care Teams Team MemberRelationshipSpecialtyStart DateEnd Date Jose A White MD [address] [facility] [address] PCP - GeneralFamily Medicine06/01/25documented as of this encounter
--- OUTSIDE RECORDS SUMMARY | 2025-07-31 12:54 | XMS_ITS | Patient Health Record ---
Author Organization [facility] [place] Address [address] [place] [address] Care Team Providers Care Nuclear Plant Technical Advisor Name Role Phone Agustín White Primary Care Provider BarryWilma Unavailable [phone] Allergies No Known Allergies Results Component Value Reference Range Notes FREE T3 Reviewed date:09/04/2024 02:25:18 PM Interpretation: Performing Lab: Notes/Report: [facility] , Free T3 3.11 2.91-4.70 pg/mL Performing Lab:see note - [facility] LBGLYCOHEMOGLOBIN A1C Reviewed date:09/04/2024 02:25:18 PM Interpretation: Performing Lab: Notes/Report: [facility] ,Glycohemoglobin A1C4.94.5-6.2 % > 7.0 ACTION SUGGESTED ADA RECOMMENDED LIMIT 4.0 - 6.0 ADA THERAPEUTIC TARGET < 7.0 Estimated Average Mndydvd32Cqliljjslf Lab:see noteML - [facility] LB INSULIN Reviewed date:09/06/2024 04:12:39 PM Interpretation: Performing Lab: Notes/Report: [facility] ,Xhxlour76.52.6-24.9 uIU/mL Dental Service Chief: Merritt Clayton PhD, Phone: [phone] [address] [place], [place] [id number] Performed at: [facility] Performing Lab:see noteLC - [facility] LBLIPID PROFILE Reviewed date:09/04/2024 02:25:18 PM Interpretation: Performing Lab: Notes/Report: [facility] ,Okhugxxhjcimb32751-355 mg/wMJvahzaivqjq830100-871 mg/dLHDL Hdviszlrelm1218-87 mg/dL > or =60 mg/dl - LOW CARDIOVASCULAR RISK <40 mg/dl - HIGH CARDIOVASCULAR RISK LDL Cholesterol Pyrujguzib91.8 160-189 mg/dl HIGH >190 mg/dl VERY HIGH <100 mg/dl OPTIMAL 100-129 mg/dl NEAR OR ABOVE OPTIMAL 130-159 mg/dl BORDERLINE HIGH VLDL NYVCQMAAQKJ67.2Chol HDL Ratio3.4 4.4 - 7.1 AVERAGE RISK 3.3 - 4.4 LOW RISK >11.0 HIGH RISK 7.1 - 11.0 MODERATE RISK Performing Lab:see noteML - [facility] LBPROF 14(COMP METB) Reviewed date:09/04/2024 02:25:18 PM Interpretation: Performing Lab: Notes/Report: [facility] ,Shsgvd535281-664 mmol/LPotassium3.83.5-5.1 mmol/IMxcecwrl96362-709 mmol/LCarbon Aqefziy87.421.0-32.0 mmol/LAnion Gap15.5Esmyklu0918-124 mg/dLBlood Urea Nitrogen 13.06.4-19.3 mg/dLCreatinine0.810.70-1.30 mg/dLEstimated GFR ( Veronica>60 >=60 mL/min/1.73m 2Estimated GFR (Non- Maria Antonia>60>=60 mL/min/1.73m 2BUN Creatinine Ratio16.6Aadpnvk1.98.5-10.1 mg/dLBilirubin Total0.50.2-1.0 mg/dL Aspartate Amino Wcnmptrmbqd0374-30 U/LAlanine Tmaddxqgynzmnvau5499-74 U/L Alkaline Buftppbkwde2645-884 U/LTotal Protein7.86.4-8.2 g/dLAlbumin Level3.83.4- 5.0 g/dLGlobulin4.0Albumin Globulin Ratio0.9Performing Lab:see note - [facility] LBT4 Reviewed date:09/04/2024 02:25:18 PM Interpretation: Performing Lab: Notes/Report: [facility] ,T4 Thyroxine7.005.40-10.60 ug/dLPerforming Lab:see note - [facility] LBTSH Reviewed date:09/04/2024 02:25:18 PM Interpretation: Performing Lab: Notes/Report: [facility] ,Thyroid Stimulating Hormone3.1360.516-4.130 uIU/mLPerforming Lab:see noteML - [facility] LBURIC ACID SERUM Reviewed date:09/04/2024 02:25:18 PM Interpretation: Performing Lab: Notes/Report: [facility] ,Uric Acid7.23.5-7.2 mg/dLPerforming Lab:see noteML - [facility] LB CBC AUTO DIFF Reviewed date:04/10/2025 04:00:17 PM Interpretation: Performing Lab: Notes/Report: [facility] ,White Blood Count9.34.0-11.0 10 3/uLRed Blood Count4.524.20-6.10 10 6/uL Fvzescyqpn51.312.0-18.0 g/jGXdejcpzalj95.536.0-54.0 %Mean Corpuscular Ocboof40.4 80.0-99.0 fLMean Corpuscular Weeypieais96.625.9-34.0 pgMean Corpuscular HGB Conc 36.229.9-35.2 g/dLRed Cell Distribution Width12.011.0-15.0 %Platelet Ndgjp477 150-450 10 3/uLMean Platelet Volume9.19.5-13.5 fLNeutrophils Percent Auto57.1 43.0-75.0 %Lymphocytes Percent Auto34.620.5-60.0 %Monocytes Percent Auto5.31.7- 12.0 %Eosinophils Percent Auto1.50.9-7.0 %Basophils Percent Auto1.20.2-2.0 % Immature Granulocytes Pct Auto0.30.0-0.5 %Neutrophils Absolute Auto5.31.4-6.5 10 3/uLLymphocytes Absolute Auto3.21.2-3.8 10 3/uLMonocytes Absolute Auto0.50.3-0.8 10 3/uLEosinophils Absolute Auto0.10.0-0.7 10 3/uLBasophils Absolute Auto0.10.0- 0.1 10 3/uLImmature Granulocytes Abs Auto0.030.00-0.03 10 3/uLPerforming Lab:see noteML - [facility] LBFREE T3 Reviewed date:04/10/2025 04:00:17 PM Interpretation: Performing Lab: Notes/Report: [facility] ,Free T32.832.91-4.70 pg/mLPerforming Lab:see noteML - [facility] LB GLYCOHEMOGLOBIN A1C Reviewed date:04/10/2025 04:00:17 PM Interpretation: Performing Lab: Notes/Report: [facility] ,Glycohemoglobin A1C5.34.5-6.2 % ACTION SUGGESTED ADA RECOMMENDED LIMIT 4.0 - 6.0 ADA THERAPEUTIC TARGET < 7.0 > 7.0 Estimated Average Wobfogw695Iwkeptcxmz Lab:see noteML - [facility] LB LIPID PROFILE Reviewed date:04/10/2025 04:00:17 PM Interpretation: Performing Lab: Notes/Report: [facility] ,Zwwhxgccfbjqd87401-573 mg/tPClsrcabuonl057084-544 mg/dLHDL Qbpmznptqxh3562-00 mg/dL > or =60 mg/dl - LOW CARDIOVASCULAR RISK <40 mg/dl - HIGH CARDIOVASCULAR RISK LDL Cholesterol Fdedlrawyy17.2 100-129 mg/dl NEAR OR ABOVE OPTIMAL >190 mg/dl VERY HIGH 130-159 mg/dl BORDERLINE HIGH <100 mg/dl OPTIMAL 160-189 mg/dl HIGH VLDL KNLBXHNFERF94.8Chol HDL Ratio3.4 >11.0 HIGH RISK 3.3 - 4.4 LOW RISK 7.1 - 11.0 MODERATE RISK 4.4 - 7.1 AVERAGE RISK Performing Lab:see note - [facility] LBPROF 14(COMP METB) Reviewed date:04/10/2025 04:00:17 PM Interpretation: Performing Lab: Notes/Report: [facility] ,Qqcgod840086-631 mmol/LPotassium4.03.5-5.1 mmol/FPgvqpppm71176-537 mmol/LCarbon Zaxumai04.821.0-32.0 mmol/LAnion Gap17.6Elgbfcm04523-856 mg/dLBlood Urea Vpnymjng37.06.4-19.3 mg/dLCreatinine0.640.55-1.30 mg/dLEstimated GFR ( Veronica>60>=60 mL/min/1.73m 2Estimated GFR (Non- Maria Antonia>60>=60 mL/min/1.73m 2BUN Creatinine Ratio15.1Mypwraz8.28.5-10.1 mg/dLBilirubin Total0.60.2-1.0 mg/dL Aspartate Amino Jyptxvxfpst6367-43 U/LAlanine Kltezpvamnvvecdf88419-93 U/L Alkaline Slqlgeczkvw7644-632 U/LTotal Protein7.96.4-8.2 g/dLAlbumin Level3.73.4- 5.0 g/dLGlobulin4.2Albumin Globulin Ratio0.9Performing Lab:see noteML - [facility] LBT4 Reviewed date:04/10/2025 04:00:17 PM Interpretation: Performing Lab: Notes/Report: [facility] ,T4 Thyroxine4.605.40-10.60 ug/dLPerforming Lab:see noteML - [facility] LBTSH Reviewed date:04/10/2025 04:00:17 PM Interpretation: Performing Lab: Notes/Report: [facility] ,Thyroid Stimulating Hormone2.1200.516-4.130 uIU/mLPerforming Lab:see noteML - [facility] LBCBC AUTO DIFF Reviewed date:09/04/2024 02:22:42 PM Interpretation: Performing Lab: Notes/Report: [facility] ,White Blood Count8.74.0-11.0 10 3/uLRed Blood Count4.334.70-6.10 10 6/uL Ccpiokdfuk09.714.0-18.0 g/aPRxkwvnrvxk12.142.0-54.0 %Mean Corpuscular Fiqhyh34.0 80.0-94.0 fLMean Corpuscular Syuceivkoo52.625.9-34.0 pgMean Corpuscular HGB Conc 36.029.9-35.2 g/dLRed Cell Distribution Width11.811.0-15.0 %Platelet Gwbnf222 150-450 10 3/uLMean Platelet Volume9.09.5-13.5 fLNeutrophils Percent Auto50.2 43.0-75.0 %Lymphocytes Percent Auto40.120.5-60.0 %Monocytes Percent Auto6.61.7- 12.0 %Eosinophils Percent Auto1.80.9-7.0 %Basophils Percent Auto1.20.2-2.0 % Immature Granulocytes Pct Auto0.10.0-0.5 %Neutrophils Absolute Auto4.31.4-6.5 10 3/uLLymphocytes Absolute Auto3.51.2-3.8 10 3/uLMonocytes Absolute Auto0.60.3-0.8 10 3/uLEosinophils Absolute Auto0.20.0-0.7 10 3/uLBasophils Absolute Auto0.10.0- 0.1 10 3/uLImmature Granulocytes Abs Auto0.010.00-0.03 10 3/uLPerforming Lab:see noteML - [facility] LBINSULIN Reviewed date:04/11/2025 01:00:29 PM Interpretation: Performing Lab: Notes/Report: [facility] ,Cfnulem25.52.6-24.9 uIU/mL [address] [place], [place] [id number] Dental Service Chief: Merritt Clayton PhD, Phone: [phone] Performed at: [facility] Performing Lab:see note - [facility] LB Reason For Referral No Information Medications Medication SIG (Take, Route, Frequency, Duration) Notes Start Date End Date Status Levothyroxine Sodium 25 MCG 1 tablet in the morning on an empty stomach Orally Once a day; Duration: 30 day(s) 5ActiveSpironolactone 25 MG1 tablet Orally bidActiveBlood Glucose Monitor System w/Deviceuse device Dx:E11.9 daily to monitor blood glucose level 5ActiveEstradiol 2 MG1 1/2 tablet Orally bidActiveTest Strips -Dx: E11.9 Dx: Diabetes Type II Once daily; Duration: 90 days5Active metFORMIN HCl 500 MG1 tablet with a meal Orally bid; Duration: 30 days04/11/2025 ActiveLancets 30G -Use 1 lancet E11.9 once daily; Duration: 5Active Social History Tobacco Use: Social History Observation Description Date Details (start date - stop date) Never Smoker NA - NA Sex Assigned At : Social History Observation Description Sex Assigned At Male Tobacco Use/Smoking Question Answer Notes Patient is a nonsmoker Alcohol Screen (Audit-C) Question Answer Notes Did you have a drink containing alcohol in the p ast year? No Aiusmu2YlhabqhdyhmlwgWdpmhahg Problems Problem Type SNOMED Code ICD Code Onset Dates Problem Status W/U Status Risk Notes Problem Well child visit (003588918) Well child c heck (Z00.129) ActiveconfirmedProblemHypothyroid (55583600)Hypothyroid (E03.9)Activeconfirmed ProblemElevated blood pressure reading without diagnosis of hypertension (263696796)Borderline hypertension (R03.0)ActiveconfirmedProblemOtitis externa (4007772)Otitis externa (H60.90)ActiveconfirmedProblemOtitis externa of right ear (0680695876056274)Otitis externa of right ear (H60.91)ActiveconfirmedProblem Acute sinusitis (27584259)Acute sinus infection (J01.90)ActiveconfirmedProblem Ingrowing nail (701677049)Ingrown right greater toenail (L60.0)Activeconfirmed ProblemIngrown toenail of right foot (63619368373788331)Ingrown toenail of right foot (L60.0)ActiveconfirmedProblemAttention deficit hyperactivity disorder (183941700)ADHD (F90.9)ActiveconfirmedProblemCOVID-19 (544105871)COVID-19 (U07.1)Activeconfirmed Vital Signs Heart Rate 89 /min 10/26/2024 Mbjkvfrjrkv49 degrees Ksfipfihrv93/23/2025Respiratory Rate16 /min10/12/2024lood pressure cadehhduo61 mm Hg04/10/20257347Oivpzuxg05 %10/26/2024MI Vvpfbnlmia30.86 % 04/10/20258587Fhwbst45 in04/10/2025lood pressure xxhfnexo842 mm Hg04/10/2025Weight 315.8 lbs04/10/2025BMI46.63 kg/m204/10/2025 Encounters Encounter Location Date Provider Diagnosis [facility] [address] [facility] [facility] [place] [address] 09/04/2024 Agustín White [facility] (PODIATRY)[address] [place] [address] [place] [address]/23/2025Kaylaly CullenIngrowing nail L60.0 ; Cellulitis of left toe L03.032 and Cutaneous abscess of left foot L02.612[facility] (PODIAT[facility])[address] [place] [address] [place] [address]/02/2025Kimberly CullenCutaneous abscess of left foot L02.[address] [place] [address]/Doug HoyOtitis externa of right ear H60.91 and Ingrown toenail of right foot L60.0[address] [place] [address]/Doug HoyBorderline hypertension R03.0[address] [place] [address]/Doug HoyHypothyroid E03.9BEv[address] [place] [address]/Doug HoyBShirley [address] [place] [address]/09/2024Doug Hoy Assessments Encounter Date Diagnosis (ICD Code) Assessment Notes Treatment Notes Treatment Clinical Notes Section Notes 10/12/2024 Cellulitis of left toe (ICD-10 - L03.032) 10/12/2024Ingrowing nail (ICD-10 - L60.0) The patient is a pleasant 19-year-old male who presents for evaluation of ingrown toenail of the left hallux. Physical examination is consistent with paronychia of the medial and lateral nail borders. I recommend nail avulsion for definitive treatment. The patient is agreeable. 10/26/2024utaneous abscess of left foot (ICD-10 - L02.612)Resolved with avulsion of the left hallux nail and a course of Keflex. She may discontinue local wound care at her discretion. Follow-up as needed.01/10/2025Otitis externa of right ear (ICD-10 - H60.91)01/10/2025Ingrown toenail of right foot (ICD-10 - L60.0)04/10/2025orderline hypertension (ICD-10 - R03.0)04/10/2025Hypothyroid (ICD-10 - E03.9)10/12/2024utaneous abscess of left foot (ICD-10 - L02.612)After verbal consent, the skin over the hallux was prepped using alcohol. A digital block was performed using lidocaine 2% plain. After adequate anesthesia was verified, a nail elevator was used to lift the entire nail, which was then removed using a hemostat. The nail folds were then thoroughly curetted and all foreign material was removed. The site was then dressed with a dry sterile dressing placed loosely on the toe. Wound care and dressing instructions were given to the patient. The patient will follow-up in 2 weeks for reevaluation, but was advised to follow-up sooner if any evidence ofworsening infection develops in the interim. Plan Of Treatment Pending Test Test Name Order Date CMP (COMPLETE METABOLIC PANEL) 4 HEMOGLOBIN A1C (GLYCO) 05/24/2024 HEMOGLOBIN A1C (GLYCO) 04/10/2025 INSULIN, TOTAL 04/10/2025 INSULIN, TOTAL 05/24/2024 LIPID PANEL (CHOL/TRIG/HDL/LDL) 05/24/20 24 LIPID PANEL (CHOL/TRIG/HDL/LDL) 04/10/20 25 CBC WITH DIFF 05/24/2024 URIC ACID 05/24/2024 I & D Abscess Complicated- performed THYROID PANEL (T4/TSH/FREE T3) 4 THYROID PANEL (T4/TSH/FREE T3) 5 THYROID PANEL (T4/TSH/FREE T3) 5 CMP (COMP MET LONG) w/eGFR CKD-EPI 2024 CBC WITH DIFF 04/10/2025 Insurance Providers Payer Name Payer Address Payer Phone Subscriber Number Group Number Insured Name Patient Relationship to Insured Coverage Start Date Coverage End Date [employer] [place] [employer] [address] [place] [address] [id number] Jovana Hemphill Self - patient is the insured Medical (General) History Medical History History ICD Code Prediabetes R73.03 Borderline hypertension R03.0 Hypertriglyceridemia E78.1 ADHD (attention deficit hyperactivity di sorder) F90.9 Bipolar affective disorder F31.9 Seasonal allergic rhinitis J30.2 Eczema L30.9 paronychia
--- OUTSIDE RECORDS SUMMARY | 2025-07-31 12:54 | XMS_ITS | Encounter Summary ---
Author Organization [facility] Address [address] [place] [address] Care Team Providers Care Tack Puller Name Role Phone Jose A White MD Primary Care Provider [phone] Encounter Details DateTypeDepartmentCare Team (Latest Contact Info)Vvzdoamjxum18/03/2025amboo flowsheet [facility] [address], [facility] [address] [place] [phone] Emeka Lim DO [address] [facility] [address] [place] [address] Social History Tobacco UseTypesPacks/DayYears UsedDateSmoking Tobacco: NeverSmokeless [...] relatives?Twice a week07/23/2025How often do you attend yarsani or pentecostal services?Never07/23/2025Do you belong to any clubs or organizations such as yarsani groups, unions, fraternal or athletic groups, or [...] food, housing, medical care, and heating?Not very hard07/23/2025[facility] [place] [facility] - Occupational Stress QuestionnaireAnswerDate [...] were you homeless or living in a penitentiary (including now)?No 07/23/2025B1300 Health LiteracyAnswerDate RecordedHow often do you need to have someone help you when you read instructions, pamphlets, or other written material from your doctor or pharmacy?Never07/23/2025Sex and Gender Information ValueDate RecordedSex Assigned at WyadtNvbq31/12/2025 2:23 PM EDTLegal SexFemale 06/01/2025 2:23 PM EDTGender IdentityNot on fileSexual OrientationNot on file documented as of this encounter Functional Status * AUDIT-C ScoreAnswerDate of XmafvzjlmgArwheo526/03/2025 12:11 AM Juan Generic * Q1: How often do you have a drink containing alcohol?AnswerDate of Assessment ZevifjXkggb30/03/2025 12:11 AM ESTEfraín Generic * Q2: How many drinks containing alcohol do you have on a typical day when you are drinking?AnswerDate of AssessmentAuthorPatient does not drink07/23/2025 12:11 AM Juan Generic * Q3: How often do you have six or more drinks on one occasion?AnswerDate of NxsipewyqhAbtxtvGxcst23/03/2025 12:11 AM Juan Generic documented as of this encounter Plan of Treatment DateTypeDepartmentCare Team (Latest Contact Info)Zytorfhnujh27/16/2025 2:00 PM ESTClinical Support [facility] [address] [place] [address] Claudy Santana LPC 10/23/2025 1:20 PM ESTOffice Visit [facility] [address], [address] [place] [address] Emeka Lim DO [address] [place] [address] documented as of this encounter Visit Diagnoses Not on filedocumented in this encounter Care Teams Team MemberRelationshipSpecialtyStart DateEnd Date Jose A White MD [address] [place] [address] PCP - GeneralFamily Medicine06/01/25documented as of this encounter
[2025-07-31 13:27] LABS: Anion Gap 12.6; Blood Urea Nitrogen 9.0 mg/dL (6.4-19.3); Calcium 9.0 mg/dL (8.5-10.1); Carbon Dioxide 26.3 mmol/L (21.0-32.0); Chloride 103 mmol/L (98-107); Estimated GFR (African America >60 (>=60 mL/min/1.73m^2); Estimated GFR (Non-African Ame >60 (>=60 mL/min/1.73m^2); Glucose 135 mg/dL (74-106); Potassium 3.9 mmol/L (3.5-5.1); Sodium 138 mmol/L (136-145)
== END 2025-07-31 12:50 | disposition home or self-care (01) ==
LOC: LAB 12:50
PROVIDERS: PCP Family Medicine; Visit Provider Student in an Organized Health Care Education/Training Program
DX: F64.0 Transsexualism (principal)
CPT/HCPCS: 36415; 80048; 82670; 84402; 84403